=== PATIENT | male | born 1990 | race Two or more races ===

== ENCOUNTER 2024-09-15 18:32 | Inpatient (IN) | payer MEDICAID, OTHER ==
[~2024-09-15] VITALS: Ht 182.9 cm; Wt 105.0 kg
--- NOTE | 2024-09-15 19:01 | ED.PDOC ---
Altered Mental Status HPI Comments 33-year-old male came to ER via EMS for overdose/altered level of consciousness. Per EMS, patient picked up at home, was noted by family members that he was acting altered, confused, disoriented, and combative. Was said to have drank 750cc of whiskey earlier, and took unknown amounts of Xanax also. Patient has history of polysubstance abuse, methamphetamines, cocaine and heroin among others, in unsure if patient took some today. Patient verbally and physically aggressive at this time. No information could be taken from him Chief Complaint: Overdose Time Seen by MD: 19:00 Reviewed Notes: Hide Dyer Notes Allergies: Coded Allergies: NO KNOWN ALLERGIES (Unverified , 09/15/24) Information Source: Patient, Emergency Med Personnel Mode of Arrival: EMS Severity: Unable to Care for Self Timing: Hours Duration: Since onset Quality: Decreased Alertness, Change in Behavior, Confusion Recent: Medication/Drug Abuse Review of Systems REVIEW OF SYSTEMS: Unable to obtain due to Altered level of consciousness, intoxicated with alcohol/ drugs Vital Signs Vital Signs Date Time Temp Pulse Resp B/P (MAP) Pulse Ox O2 Delivery O2 Flow Rate FiO2 09/15/24 20:00 114 09/15/24 18:45 32 104/45 (64) 95 Physical Exam General: Awake, alert and oriented. No acute distress. Skin: Skin in warm, dry and intact. Appropriate color for ethnicity. Nailbeds pink with no cyanosis. HEENT: The head is normocephalic and atraumatic. Conjunctivae are clear without exudates or hemorrhage. Sclera is non-icteric. EOM are intact. No signs of nystagmus. Eyelids are normal in appearance without swelling or lesions. Oral mucosa is pink and moist Neck: The neck is supple with normal range of motion. No JVD. Cardiac: Heart rate and rhythm are normal. No murmurs, gallops, or rubs are auscultated. Respiratory: No signs of respiratory distress. Lung sounds are clear in all lobes bilaterally without rales, rhonchi, or wheezes. Abdominal: Abdomen is soft, non-tender without distention. Bowel sounds are present and normoactive in all four quadrants. Extremities: Upper and lower extremities are atraumatic in appearance without deformity or edema. Neurological: The patient is awake, speech is slurred and slow. Psychiatric: Patient is agitated and combative. Past Medical History PAST MEDICAL HISTORY: Pt Confused Surgical History: Pt Confused Family History Family History: Pt Confused Social History Smoker: Pt Confused Alcohol: Heavy Drugs: Cocaine, Heroin, Marijuana, Methamphetamine Lives In: Home Was a procedure done? Was a procedure done?: No Differential Diagnosis (ALOC) Differential Diagnosis: Dehydration, Hypoglycemia, Encephalopathy, Hypoxemia, Seizure, Closed Head Injury, Drug Overdose, ETOH Intoxication, Other X-Ray, Labs, Meds, VS Vital Signs Date Time Temp Pulse Resp B/P (MAP) Pulse Ox O2 Delivery O2 Flow Rate FiO2 09/15/24 20:00 114 09/15/24 18:45 125 32 104/45 (64) 95 Lab Test 09/15/24 22:00 09/15/24 19:18 Range/Units Urine Color Colorless Yellow Urine Clarity Clear Clear Urine pH 5.5 5.0-9.0 Urine Specific [place] 1.005 1.001-1.035 Urine Protein Negative Negative Urine Ketones Negative Negative Urine Blood Negative Negative /uL Urine Nitrite Negative Negative Urine Bilirubin Negative Negative Urine Urobilinogen Normal Negative mg/dL Urine Leukocyte Esterase Negative Negative /uL Urine RBC None seen 0 - 3 /hpf Urine Microscopic WBC 1 0-3 /HPF Urine Squamous Epithelial Cells None seen <5 /hpf Urine Bacteria None seen None Seen /hpf Urine Hyaline Casts Few 0 - 2 /lpf Urine Glucose Normal Normal mg/dL Urine Opiates Screen Neg NEGATIVE Urine Fentanyl Screen Neg NEGATIVE Urine Barbiturates Screen Neg NEGATIVE Urine Phencyclidine Screen Neg NEGATIVE Urine Amphetamines Screen Neg NEGATIVE Urine Benzodiazepines Screen Pos NEGATIVE Urine Cocaine Screen Neg NEGATIVE Urine Cannabinoids Screen Neg NEGATIVE White Blood Count 6.9 4.4-10.8 10^3/uL Red Blood Count 4.69 4.5-5.90 10^6/uL Hemoglobin 13.2 L 13.5-17.5 g/dL Hematocrit 39.4 L 41.0-53.0 % Mean Corpuscular Volume 84.0 80.0-100.0 fL Mean Corpuscular Hemoglobin 28.1 28.0-32.0 pg Mean Corpuscular Hemoglobin Concent 33.4 32.0-36.0 g/dL Red Cell Distribution Width 15.6 H 11.8-14.3 % Platelet Count 395 140-450 10^3/uL Mean Platelet Volume 8.0 6.9-10.8 fL Neutrophils (%) (Auto) 52.5 37.0-80.0 % Lymphocytes (%) (Auto) 35.4 10.0-50.0 % Monocytes (%) (Auto) 7.3 0.0-12.0 % Eosinophils (%) (Auto) 4.2 0.0-7.0 % Basophils (%) (Auto) 0.6 0.0-2.0 % Neutrophils # (Auto) 3.6 1.6-8.6 10 ^3/uL Lymphocytes # (Auto) 2.4 0.4-5.4 10 ^3/uL Monocytes # (Auto) 0.5 0-1.3 10 ^3/uL Eosinophils # (Auto) 0.3 0-0.8 10 ^3/uL Basophils # (Auto) 0 0-0.2 10 ^3/uL Nucleated Red Blood Cells 0.0 % Sodium Level 150 H 136-145 mmol/L Potassium Level 3.9 3.5-5.1 mmol/L Chloride Level 114 H 98-107 mmol/L Carbon Dioxide Level 25 20-31 mmol/L Anion Gap 11 5-15 Blood Urea Nitrogen 7 L 9-23 mg/dL Creatinine 1.17 0.700-1.30 mg/dL Glomerular Filtration Rate Calc 83 >90 mL/min BUN/Creatinine Ratio 6.0 L 10.0-20.0 Serum Glucose 115 H 74-106 mg/dL Calcium Level 10.2 8.7-10.4 mg/dL Total Bilirubin 0.2 0.2-1.0 mg/dL Aspartate Amino Transferase (AST) 28 <34 U/L Alanine Aminotransferase (ALT) 49 H 7-40 U/L Alkaline Phosphatase 50 46-116 U/L B-Type Natriuretic Peptide 9.85 0-100 pg/mL Total Protein 7.4 5.7-8.2 g/dL Albumin 4.6 3.2-4.8 g/dL Plasma/Serum Blood Alcohol 216.6 H <10 mg/dL Current Medications Medications (Trade) Dose Ordered Sig/Asha Route Start Time Stop Time Status Last Admin Diphenhydramine HCl (Benadryl Injection) 50 mg ONCE ONCE IM 09/15/24 18:45 09/15/24 18:46 DC 09/15/24 19:26 Haloperidol Lactate (Haldol) 5 mg ONCE ONCE IM 09/15/24 18:45 09/15/24 18:46 DC 09/15/24 19:26 Sodium Chloride 1,000 ml @ 1,000 mls/hr Q1H ONCE IV 09/15/24 18:45 09/15/24 19:44 DC 09/15/24 19:42 Lactated Ringer's 1,000 ml @ 100 mls/hr Q10H IV 09/15/24 20:45 09/15/24 20:45 Time of 1ST Reevaluation: 18:55 Reevaluation 1ST: Unchanged Patient Education/Counseling: Prognosis, Other (Altered level of consciousness) Family Education/Counseling: No Family Present SEPSIS Sepsis Screen Physician Orders Behavioral Restraints (09/15/24 19:25) Lactated Ringer's (09/15/24 20:45) Canales Catheters (09/15/24 ) Chest Xray 1 View (09/15/24 22:34) Abg W/ Co-Ox (09/15/24 22:34) Vital Signs Date Time Temp Pulse Resp B/P (MAP) Pulse Ox O2 Delivery O2 Flow Rate FiO2 09/15/24 20:00 114 09/15/24 18:45 125 32 104/45 (64) 95 Laboratory Tests Test 09/15/24 19:18 White Blood Count 6.9 10^3/uL (4.4-10.8) Medications Medications Dose Ordered Sig/Asha Route Start Time Stop Time Status Last Admin Dose Admin Diphenhydramine HCl 50 mg ONCE ONCE IM 09/15/24 18:45 09/15/24 18:46 DC 09/15/24 19:26 Haloperidol Lactate 5 mg ONCE ONCE IM 09/15/24 18:45 09/15/24 18:46 DC 09/15/24 19:26 Lactated Ringer's 1,000 ml @ 100 mls/hr Q10H IV 09/15/24 20:45 09/15/24 20:45 Sodium Chloride 1,000 ml @ 1,000 mls/hr Q1H ONCE IV 09/15/24 18:45 09/15/24 19:44 DC 09/15/24 19:42 Departure 1 Departure Time of Disposition: 21:05 Impression: Primary Impression: Alcohol intoxication Additional Impressions: Hypernatremia Polysubstance abuse Polysubstance overdose Disposition: 09 ADMITTED INPATIENT Condition: Stable Comments 33-year-old male who presented to the emergency department with altered mental status. Patient was agitated and combative with staff on arrival to the emergency department. He was unable to be redirected. Patient was placed in restraints and given Benadryl and Haldol. Patient found to be hypernatremic Patient admitted to hospitalist service for further treatment, evaluation and monitoring. Extensive evaluation was performed in attempt to identify or rule out: (See differential diagnosis section) The following tests were ordered, and results were reviewed by me and discussed with patient: (See diagnostic results section) The following test were independently interpreted by me: N/A I reviewed and agreed with the following test results read by other providers: N/A I reviewed the following notes from the pt's past medical encounters: N/A Additional information was gathered from interviewing the following independent historians: EMS personnel Discussion of management or test interpretation with external physician/other qualified health lpn care manager: N/A Decision regarding hospitalization or escalation of hospital level of care: Risk and benefits of admission for further treatment of patient's condition was considered. Due to patient's current clinical condition, high risk of decline and poor outcome if discharged and need for further inpatient management and monitoring, patient will be admitted to the hospital. Discussed with patient. Decision regarding hospitalization or escalation of hospital level of care: Risks and benefits of admission for further treatment of patient's condition was considered however due to patient's stable condition patient will be discharged to follow up closely or return to care for worsening of condition or inability to follow up. Critical Care Note Critical Care Time?: No Stability Stability form required: No Heart Score Heart Score: Heart Score Response (Comments) Value History N/A 0 EKG N/A 0 Age N/A 0 Risk Factors N/A 0 Troponin N/A 0 Total 0 I personally scribed for PRABHU TAYLOR MD ([email or web address]) on 09/15/24 at 19:01. Electronically submitted by Elías Herrera ([email or web address]). PRABHU TAYLOR MD Sep 15, 2024 19:01
[2024-09-15] MEDS: HALOPERIDOL LACTATE 5 MG/ML INJ VIAL IM ONE (19:26)
[2024-09-15] MEDS: diphenhdrAMINE HCL 50 MG/1 ML VL IM ONE (19:26)
[2024-09-15 19:36] LABS: Basophils # (auto) 0 10 ^3/uL (0-0.2); Basophils % (auto) 0.6 % (0.0-2.0); Eosinophils # (auto) 0.3 10 ^3/uL (0-0.8); Eosinophils % (auto) 4.2 % (0.0-7.0); Hematocrit 39.4 % (41.0-53.0); Hemoglobin 13.2 g/dL (13.5-17.5); Lymphocytes # (auto) 2.4 10 ^3/uL (0.4-5.4); Lymphocytes % (auto) 35.4 % (10.0-50.0); Mean Corpuscular Hemoglobin 28.1 pg (28.0-32.0); Mean Corpuscular Hgb Conc. 33.4 g/dL (32.0-36.0); Monocytes # (auto) 0.5 10 ^3/uL (0-1.3); Monocytes % (auto) 7.3 % (0.0-12.0); Neutrophils # (auto) 3.6 10 ^3/uL (1.6-8.6); Neutrophils % (auto) 52.5 % (37.0-80.0); Platelet Count (auto) 395 10^3/uL (140-450); Red Blood Cells 4.69 10^6/uL (4.5-5.90); Red Cell Distribution Width 15.6 % (11.8-14.3); White Blood Cell 6.9 10^3/uL (4.4-10.8)
[2024-09-15] MEDS: SODIUM CHLORIDE 0.9% 1,000 ML IV ONE (19:42)
[2024-09-15 19:49] LABS: Albumin 4.6 g/dL (3.2-4.8); Alkaline Phosphatase 50 U/L (46-116); Anion Gap 11 (5-15); Aspartate Aminotransferase 28 U/L (<34); Blood Alcohol 216.6 mg/dL (<10); Calcium 10.2 mg/dL (8.7-10.4); Carbon Dioxide 25 mmol/L (20-31); Potassium 3.9 mmol/L (3.5-5.1); Total Protein 7.4 g/dL (5.7-8.2)
[2024-09-15 19:52] LABS: Alanine Aminotransferase 49 U/L (7-40); Bilirubin, Total 0.2 mg/dL (0.2-1.0); Blood Urea Nitrogen 7 mg/dL (9-23); Chloride 114 mmol/L (98-107); Glucose 115 mg/dL (74-106); Sodium 150 mmol/L (136-145)
[2024-09-15] MEDS ORDERED: SODIUM CHLORIDE 0.9% 1,000 ML IV SCH (20:30)
[2024-09-15] MEDS: LACTATED RINGER'S 1,000 ML IV SCH (20:45)
[2024-09-15 22:04] LABS: Urine Bacteria None Seen /hpf (None Seen)
[2024-09-15 22:18] LABS: Urine Blood Negative /uL (Negative); Urine Clarity Clear (Clear); Urine Color Colorless (Yellow); Urine Hyaline Cast FEW /lpf (0 - 2); Urine Protein, UAD Negative (Negative); Urine Specific Gravity 1.005 (1.001-1.035); Urine Squamous Epithelial Cell None Seen /hpf (<5); Urine Urobilinogen Normal (Negative); Urine WBC 1 /HPF (0-3); Urine pH 5.5 (5.0-9.0)
[2024-09-15 22:26] LABS: Amphetamine Screen, Urine Neg (NEGATIVE); Barbiturate Scree,Urine Neg (NEGATIVE); Benzodiazephine Screen, Urine Pos (NEGATIVE); Cannabinoid Screen, Urine Neg (NEGATIVE); Cocaine Screen, Urine Neg (NEGATIVE); Opiate Scree,Urine Neg (NEGATIVE); Phencyclidine Screen, Urine Neg (NEGATIVE)
--- NOTE | 2024-09-15 22:40 | DVHHP2 ---
History of Present Illness Reason for Visit: Alcohol intoxication History of Present Illness The patient is a 33-year-old male with past medical history of EtOH and drug abuse presented to [facility] ED for evaluation of altered level of consciousness. As reported by EMS, patient was picked up at home, noted by family member that he was acting altered, confused, disoriented, and combative. It was reported that he drank 750 cc of whiskey and unknown amount of Xanax. Patient was seen and evaluated in the ED, laboratory data shows WBC 6.9, platelets 395, sodium 150, potassium 3.9, BUN 7, creatinine 1.17, glucose 115, AST 28, ALT 49, serum alcohol 216.6, blood pressure 104/45, heart rate 114, temperature 97.6 F, O2 saturation 95% on oxygen. Chest x-ray revealing prominence of the interstitial markings in the right greater than left lungs no pleural effusions or pneumothorax. Please see medication orders section in the computer. On my assessment, patient remains altered, agitated, wheezing, no diaphoresis, currently on oxygen, no diarrhea, no nausea, no vomiting, no fever, no chills. Patient was admitted for further evaluation and medical management. Past Medical History EtOH abuse, Polysubstance abuse Past Surgical History Unobtainable Family History Reviewed, noncontributory to the management of this case. Past Social History Patient lives at home, no history of smoking, drinks alcohol heavily, uses Cocaine, Heroin, Marijuana, Methamphetamine. Review of Systems Constitutional: Yes: Weakness; No: Fever, Chills, Sweats, Malaise, Other Eyes: No: Pain, Vision change, Conjunctivae inflammation, Eyelid inflammation, Other, Redness ENT: No: Ear pain, Ear discharge, Nose pain, Nose discharge, Nose congestion, Mouth pain, Mouth swelling, Throat pain, Throat swelling, Other Respiratory: No: Cough, Dry, Shortness of breath, SOB with excertion, Wheezing, Hemoptysis, Pleuritic Pain, Sputum, Wheezing, Other Cardiovascular: No: Chest Pain, Palpitations, Orthopnea, Paroxysmal Noc. Dyspnea, Edema, Lt Headedness, Other Gastrointestinal: No: Nausea, Vomiting, Abdominal Pain, Diarrhea, Constipation, Melena, Hematochezia, Other Genitourinary: No Dysuria, No Frequency, No Incontinence, No Hematuria, No Retention, No Other Musculoskeletal: No: other, neck pain, shoulder pain, arm pain, back pain, hand pain, leg pain, foot pain Skin: No: Rash, Lesions, Jaundice, Bruising, Other Neurological: Confusion, Other (Altered level of consciousness); No: Weakness, Numbness, Incoordination, Change in speech, Seizures Allergies: Coded Allergies: NO KNOWN ALLERGIES (Unverified , 09/15/24) Medications Current Medications Medications Dose Ordered Sig/Asha Route Start Time Stop Time Status Last Admin Dose Admin Lactated Ringer's 1,000 ml @ 100 mls/hr Q10H IV 09/15/24 20:45 09/15/24 20:45 100 MLS/HR Exam Vital Signs Vital Signs Date Time Temp Pulse Resp B/P (MAP) Pulse Ox O2 Delivery O2 Flow Rate FiO2 09/15/24 20:00 114 09/15/24 18:45 32 104/45 (64) 95 General Appearance: Alert, Cooperative, No acute distress HEENT: Atraumatic, PERRLA, EOMI, Mucous membr. moist/pink Respiratory: Normal air movement Cardiovascular: Regular rate, Normal S1, Normal S2, No murmurs Abdominal: Normal bowel sounds, Soft, No tenderness, No hepatospenomegaly, No masses Extremities: No clubbing, No cyanosis, No edema, Normal pulses, No tenderness/swelling Skin: No rashes, No breakdown, No significant lesion Neuro: Reflexes 2+, Other (Generalized weakness) Psych/Mental Status: Mood NL, Other (Altered mental status) Labs/Xrays Labs Test 09/15/24 22:00 09/15/24 19:18 Range/Units Urine Color Colorless Yellow Urine Clarity Clear Clear Urine pH 5.5 5.0-9.0 Urine Specific [place] 1.005 1.001-1.035 Urine Protein Negative Negative Urine Ketones Negative Negative Urine Blood Negative Negative /uL Urine Nitrite Negative Negative Urine Bilirubin Negative Negative Urine Urobilinogen Normal Negative mg/dL Urine Leukocyte Esterase Negative Negative /uL Urine RBC None seen 0 - 3 /hpf Urine Microscopic WBC 1 0-3 /HPF Urine Squamous Epithelial Cells None seen <5 /hpf Urine Bacteria None seen None Seen /hpf Urine Hyaline Casts Few 0 - 2 /lpf Urine Glucose Normal Normal mg/dL Urine Opiates Screen Neg NEGATIVE Urine Fentanyl Screen Neg NEGATIVE Urine Barbiturates Screen Neg NEGATIVE Urine Phencyclidine Screen Neg NEGATIVE Urine Amphetamines Screen Neg NEGATIVE Urine Benzodiazepines Screen Pos NEGATIVE Urine Cocaine Screen Neg NEGATIVE Urine Cannabinoids Screen Neg NEGATIVE White Blood Count 6.9 4.4-10.8 10^3/uL Red Blood Count 4.69 4.5-5.90 10^6/uL Hemoglobin 13.2 L 13.5-17.5 g/dL Hematocrit 39.4 L 41.0-53.0 % Mean Corpuscular Volume 84.0 80.0-100.0 fL Mean Corpuscular Hemoglobin 28.1 28.0-32.0 pg Mean Corpuscular Hemoglobin Concent 33.4 32.0-36.0 g/dL Red Cell Distribution Width 15.6 H 11.8-14.3 % Platelet Count 395 140-450 10^3/uL Mean Platelet Volume 8.0 6.9-10.8 fL Neutrophils (%) (Auto) 52.5 37.0-80.0 % Lymphocytes (%) (Auto) 35.4 10.0-50.0 % Monocytes (%) (Auto) 7.3 0.0-12.0 % Eosinophils (%) (Auto) 4.2 0.0-7.0 % Basophils (%) (Auto) 0.6 0.0-2.0 % Neutrophils # (Auto) 3.6 1.6-8.6 10 ^3/uL Lymphocytes # (Auto) 2.4 0.4-5.4 10 ^3/uL Monocytes # (Auto) 0.5 0-1.3 10 ^3/uL Eosinophils # (Auto) 0.3 0-0.8 10 ^3/uL Basophils # (Auto) 0 0-0.2 10 ^3/uL Nucleated Red Blood Cells 0.0 % Sodium Level 150 H 136-145 mmol/L Potassium Level 3.9 3.5-5.1 mmol/L Chloride Level 114 H 98-107 mmol/L Carbon Dioxide Level 25 20-31 mmol/L Anion Gap 11 5-15 Blood Urea Nitrogen 7 L 9-23 mg/dL Creatinine 1.17 0.700-1.30 mg/dL Glomerular Filtration Rate Calc 83 >90 mL/min BUN/Creatinine Ratio 6.0 L 10.0-20.0 Serum Glucose 115 H 74-106 mg/dL Calcium Level 10.2 8.7-10.4 mg/dL Total Bilirubin 0.2 0.2-1.0 mg/dL Aspartate Amino Transferase (AST) 28 <34 U/L Alanine Aminotransferase (ALT) 49 H 7-40 U/L Alkaline Phosphatase 50 46-116 U/L Total Protein 7.4 5.7-8.2 g/dL Albumin 4.6 3.2-4.8 g/dL Plasma/Serum Blood Alcohol 216.6 H <10 mg/dL PATIENT: ROHIT CUETOACCT: [id number] UNIT: [id number] : 1990 LOC: ER ROOM / BED: / AGE / SEX: 33 / M ADM STATUS: REG ER SERVICE 33 ORDERING PHYSICIAN: PRABHU TAYLOR MD PROCEDURE(s): CXR1 - CHEST XRAY 1 VIEW REASON: Wheezing, hypoxia ORDER NUMBER(s): [id number], ACCESSION NUMBER(s): [id number] CHEST RADIOGRAPH Indication: Wheezing, hypoxia Technique: Single frontal view of the chest was obtained Comparison: None FINDINGS/IMPRESSION: There is prominence of the interstitial markings in the right greater than left lung. No pleural effusion or pneumothorax. The cardiomediastinal silhouette is unremarkable. No acute osseous abnormality. Assessment/Plan Assessment/Plan Alcohol intoxication Hypernatremia Polysubstance abuse Polysubstance overdose Plan 1. Admit to telemetry unit 2. Breathing treatment 3. Pain control management 4. Management of fluids and electrolytes 5. Consultation for hospitalist 6. Diagnostic tests chest x-ray 7. DVT prophylaxis on SCDs 8. Repeat labs CBC, CMP in a.m. 9. Continue with current medical management 10. Treatment plan discussed with patient and RN. Patient verbalized understanding. Plan discussed with: Patient, Other (RN) My Orders Orders - NADIR CHURCH DNP Procedure Category Date Status Time Thiamine Inj PHA 09/16/24 Verified 10:00 Thiamine Inj PHA 09/15/24 Verified 22:45 Folic Acid Ivpb PHA 09/16/24 Verified 10:00 Folic Acid Ivpb PHA 09/15/24 Verified 22:45 Multiple Vitamin PHA 09/15/24 Verified Tablet (Mvi Tab) 22:45 Multiple Vitamin PHA 09/16/24 Verified Tablet (Mvi Tab) 10:00 Chlordiazepoxide Hcl PHA 09/15/24 Verified Capsule (Librium Ca 22:45 Admit ADMIT 09/15/24 Verified 22:36 Allergies SARAH 09/15/24 Verified 22:36 Code Status CODE 09/15/24 Verified 22:36 Oxygen Per Hour RT 09/15/24 Verified 22:36 Ondansetron Hcl PHA 09/15/24 Verified (Zofran) 22:45 Docusate Sodium PHA 09/15/24 Verified Capsule (Colace 22:45 Fall Risk Precautions SARAH 09/15/[address] 22:36 Complete Blood Count LAB 09/16/24 Verified 04:00 Comprehensive LAB 09/16/24 Verified Metabolic Panel 04:00 Cardiac DIET 09/16/24 Verified Diet-2gna,Lofat,Lochol Breakfast Condition: Serious SARAH 09/15/24 Verified 22:36 Acetaminophen Tablet PHA 09/15/24 Verified (Tylenol Tablet) 22:45 Maintain Bed Rest SARAH 09/15/24 Verified 22:36 Sequential SARAH 09/15/24 Verified Compression Device Nitroglycerin PHA 09/15/24 Verified Sublingual (Ntrostat 22:45 Morphine Sulfate PHA 09/15/24 Verified Injection 22:45 Stat Ekg For Chest [facility] 09/15/24 Verified Pain 22:36 Notify Md Of Changes [facility] 09/15/24 Verified From Base 22:36 Blanket Winder Operator For [facility] 09/15/24 Verified 24 Hours 22:36 Emergency Dysrhythmia [facility] 09/15/24 Verified Protocol 22:36 Rhythm Strips Once [facility] 09/15/24 Verified Every Shift 22:36 Oxygen By Nasal RT 09/15/24 Verified Cannula 22:36 Problem List: (1) Alcohol intoxication (2) Hypernatremia (3) Polysubstance overdose (4) Polysubstance abuse Date of Service: Sep 15, 2024 Billing Provider: NADIR CHURCH DNP Common Visit Codes: [id number] INP/OBS CARE (HIGH) NADIR CHURCH DNP Sep 15, 2024 22:40
[2024-09-15] MEDS ORDERED: DOCUSATE SOD 100 MG CAP PO PRN (22:45)
[2024-09-15] MEDS ORDERED: ONDANSETRON HCL 4 MG/2 ML VIAL IV PRN (22:45)
[2024-09-15] MEDS ORDERED: ACETAMINOPHEN 325 MG TAB PO PRN (22:45)
[2024-09-15] MEDS ORDERED: NITROGLYCERIN 0.4 MG SL TAB SL PRN (22:45)
[2024-09-15] MEDS ORDERED: MORPHINE SULFATE INJ 2 MG/ml SYRG IV PRN (22:45)
[2024-09-15] MEDS ORDERED: chlordiazePOXIDE HCL 25 MG CAP PO PRN (22:45)
[2024-09-15] MEDS: FOLIC ACID 1 MG in D5W 5% 50 ML INJ ONE (22:45)
[2024-09-15] MEDS: MULTIPLE VITAMIN TAB PO ONE (22:45)
[2024-09-15] MEDS: ALBUTEROL SULF 2.5 MG/0.5ML(0.5%) NEB SOLN NEB ONE (22:58)
[2024-09-15] MEDS: ONDANSETRON HCL 4 MG/2 ML VIAL IV ONE (23:09)
--- NOTE | 2024-09-15 23:15 | DVH ---
CHEST RADIOGRAPH Indication: Wheezing, hypoxia Technique: Single frontal view of the chest was obtained Comparison: None FINDINGS/IMPRESSION: There is prominence of the interstitial markings in the right greater than left lung. No pleural effusion or pneumothorax. The cardiomediastinal silhouette is unremarkable. No acute osseous abnormality.
[2024-09-16] VITALS (8 sets, daily range): BP systolic 129; BP diastolic 72; PULSE 94–107; RESP 18–23; TEMP 98.4; O2SAT 100
[2024-09-16] MEDS: THIAMINE 100mg/ml INJ (200mg/2ml VIAL) IV ONE (00:24)
[2024-09-16] MEDS: IPRATROPIUM BROM 0.5 MG/2.5ML INH SOL NEB PRN (04:10)
[2024-09-16] MEDS: ALBUTEROL SULF 2.5 MG/0.5ML(0.5%) NEB SOLN NEB PRN (04:10)
[2024-09-16 07:22] LABS: Basophils # (auto) 0.1 10 ^3/uL (0-0.2); Basophils % (auto) 0.5 % (0.0-2.0); Eosinophils # (auto) 0 10 ^3/uL (0-0.8); Eosinophils % (auto) 0.4 % (0.0-7.0); Hemoglobin 12.9 g/dL (13.5-17.5); Lymphocytes # (auto) 1.6 10 ^3/uL (0.4-5.4); Lymphocytes % (auto) 14.6 % (10.0-50.0); Mean Corpuscular Hemoglobin 27.3 pg (28.0-32.0); Mean Corpuscular Hgb Conc. 32.2 g/dL (32.0-36.0); Mean Corpuscular Volume 84.8 fL (80.0-100.0); Monocytes # (auto) 0.7 10 ^3/uL (0-1.3); Monocytes % (auto) 6.5 % (0.0-12.0); Neutrophils # (auto) 8.4 10 ^3/uL (1.6-8.6); Platelet Count (auto) 386 10^3/uL (140-450); Red Blood Cells 4.71 10^6/uL (4.5-5.90); Red Cell Distribution Width 15.4 % (11.8-14.3); White Blood Cell 10.8 10^3/uL (4.4-10.8)
[2024-09-16] MEDS: FOLIC ACID 1 MG, MULTIPLE VITAMIN 10 ML, MAGNESIUM SULF SDV 50% 8 MEQ, THIAMINE INJ 100... INJ STA (07:25)
[2024-09-16 07:37] LABS: Albumin 4.4 g/dL (3.2-4.8); Alkaline Phosphatase 52 U/L (46-116); Anion Gap 12 (5-15); Calcium 9.8 mg/dL (8.7-10.4); Carbon Dioxide 26 mmol/L (20-31); Potassium 4.2 mmol/L (3.5-5.1); Total Protein 7.3 g/dL (5.7-8.2)
[2024-09-16 07:50] LABS: Sodium 148 mmol/L (136-145)
[2024-09-16 07:51] LABS: Alanine Aminotransferase 44 U/L (7-40); Aspartate Aminotransferase 45 U/L (<34); BUN/Creatinine Ratio 5.1 (10.0-20.0); Bilirubin, Total 0.3 mg/dL (0.2-1.0); Blood Urea Nitrogen < 5 mg/dL (9-23); Chloride 110 mmol/L (98-107); Glucose 108 mg/dL (74-106)
[2024-09-16] MEDS ORDERED: THIAMINE 100mg/ml INJ (200mg/2ml VIAL) IV SCH (10:00)
[2024-09-16] MEDS ORDERED: MULTIPLE VITAMIN TAB PO SCH (10:00)
[2024-09-16] MEDS ORDERED: FOLIC ACID 1 MG in D5W 5% 50 ML INJ SCH (10:00)
--- NOTE | 2024-09-16 16:51 | DVHPN2 ---
Subjective Patient denies any symptoms at this time. Patient continues to be somewhat encephalopathic. Reviewed: Care Plan, H&P, Medications, Previous Orders Changes from previous H/P or p: No Changes General: Per HPI Eyes: No Pain, No Vision change, No Conjunctivae inflammation, No Eyelid inflammation, No Other, No Redness ENT: No Ear pain, No Ear discharge, No Nose pain, No Nose discharge, No Nose congestion, No Mouth pain, No Mouth swelling, No Throat pain, No Throat swelling, No Other Cardiovascular: No Chest Pain, No Palpitations, No Orthopnea, No Paroxysmal Noc. Dyspnea, No Edema, No Lt Headedness, No Other Respiratory: No Cough, No Dry, No Shortness of breath, No SOB with excertion, No Wheezing, No Hemoptysis, No Pleuritic Pain, No Sputum, No Other Gastrointestinal: No Nausea, No Vomiting, No Abdominal Pain, No Diarrhea, No Constipation, No Melena, No Hematochezia, No Other Genitourinary: No Dysuria, No Frequency, No Incontinence, No Hematuria, No Retention, No Other Musculoskeletal: No other, No neck pain, No shoulder pain, No arm pain, No back pain, No hand pain, No leg pain, No foot pain Skin: No Rash, No Lesions, No Jaundice, No Bruising, No Other Objective Vitals Vital Signs Date Time Temp Pulse Resp B/P (MAP) Pulse Ox O2 Delivery O2 Flow Rate FiO2 09/16/24 16:00 94 09/16/24 07:42 20 100 Simple Mask* 6 50 09/16/24 07:39 98.4 129/72 (91) 98.4 Intake/Output Intake and Output 09/16/24 07:00 Intake Total 2000 ml Balance 2000 ml Intake IV Total 2000 ml General Appearance: Alert, Oriented X3, Cooperative, Other (Encephalopathic) HEENT: Atraumatic, PERRLA Lungs: Clear to auscultation, Normal air movement Cardiovascular: Normal S1, Normal S2 Abdomen: Normal bowel sounds Musculoskeletal: Normal sensory function, Normal motor function Neuro: Normal speech Skin: Dry, Intact Psych/Mental Status: Mood NL Medications Current Medications Medications Dose Ordered Sig/Asha Route Start Time Stop Time Status Last Admin Dose Admin Lactated Ringer's 1,000 ml @ 100 mls/hr Q10H IV 09/15/24 20:45 09/16/24 07:03 100 MLS/HR Chlordiazepoxide HCl 25 mg Q6HPRN PRN PO 09/15/24 22:45 Ondansetron HCl 4 mg Q4HP PRN IV 09/15/24 22:45 Docusate Sodium 100 mg BIDPRN PRN PO 09/15/24 22:45 Acetaminophen 650 mg Q6HP PRN PO 09/15/24 22:45 Nitroglycerin 0.4 mg Q5MINP PRN SL 09/15/24 22:45 Morphine Sulfate 2 mg Q30M PRN IV 09/15/24 22:45 Albuterol 2.5 mg Q4HPRN PRN NEB 09/16/24 03:30 09/16/24 07:21 2.5 MG Ipratropium [place] 0.5 mg Q4HPRN PRN NEB 09/16/24 03:30 09/16/24 07:21 0.5 MG Folic Acid 1 mg/ Multivitamins 10 ml/Magnesium Sulfate 8 meq/ Thiamine HCl 100 mg/Dextrose 1,013.2 ml @ 125.001 mls/hr DAILY@1800 INJ 09/17/24 08:00 Laboratory Results Laboratory Tests 09/16/24 06:58 Chemistry Test 09/15/24 19:18 09/16/24 06:58 Albumin 4.6 g/dL (3.2-4.8) 4.4 g/dL (3.2-4.8) Calcium Level 10.2 mg/dL (8.7-10.4) 9.8 mg/dL (8.7-10.4) Total Protein 7.4 g/dL (5.7-8.2) 7.3 g/dL (5.7-8.2) Cardiac Markers Test 09/15/24 19:18 B-Type Natriuretic Peptide 9.85 pg/mL (0-100) LFT Test 09/15/24 19:18 09/16/24 06:58 Alanine Aminotransferase (ALT) 49 U/L (7-40) H 44 U/L (7-40) H Alkaline Phosphatase 50 U/L (46-116) 52 U/L (46-116) Aspartate Amino Transferase (AST) 28 U/L (<34) 45 U/L (<34) H Total Bilirubin 0.2 mg/dL (0.2-1.0) 0.3 mg/dL (0.2-1.0) Urinalysis Test 09/15/24 22:00 Urine Color Colorless (Yellow) Urine Clarity Clear (Clear) Urine pH 5.5 (5.0-9.0) Urine Specific [place] 1.005 (1.001-1.035) Urine Protein Negative (Negative) Urine Ketones Negative (Negative) Urine Blood Negative /uL (Negative) Urine Nitrite Negative (Negative) Urine Bilirubin Negative (Negative) Urine Urobilinogen Normal mg/dL (Negative) Urine Leukocyte Esterase Negative /uL (Negative) Urine RBC None seen /hpf (0 - 3) Urine Microscopic WBC 1 /HPF (0-3) Urine Squamous Epithelial Cells None seen /hpf (<5) Urine Bacteria None seen /hpf (None Seen) Urine Hyaline Casts Few /lpf (0 - 2) Urine Glucose Normal mg/dL (Normal) Blood Gas Results Test 09/15/24 22:52 Arterial Blood pH 7.362 (7.350-7.450) FiO2 % 36.0 Labs and/or images reviewed: Labs reviewed by me, Image(s) reviewed by me Assessment/Plan Assessment/Plan Impression: -toxic metabolic encephalopathy -alcoholism -unintentional overdose on benzodiazepine -obesity -hypernatremia - Plan: -continue IV hydration -banana bag daily -monitor for withdrawal symptoms -benzodiazepines p.r.n. seizure activity, withdrawal symptoms -repeat labs in a.m. Total time spent with patient discussing and formulating plan of care: 35 minutes. This medical document was created using an electronic medical record system with [email or web address] dictation system. Although this document has been carefully reviewed, there may still be some phonetic and typographical errors. These areas are purely typographical due to imperfections of the software programs, and do not reflect any compromise in the patient's medical care. Plan discussed with: Patient, Other (RN) My Orders Orders - ZHAO DOWELL NP Procedure Category Date Status Time Comprehensive LAB 09/17/24 Verified Metabolic Panel 04:00 Complete Blood Count LAB 09/17/24 Verified 04:00 Date of Service: Sep 16, 2024 Billing Provider: ZHAO DOWELL NP Common Visit Codes: [id number] INP/OBS CARE(HIGH) ZHAO DOWELL NP Sep 16, 2024 16:51
[2024-09-17] MEDS ORDERED: FOLIC ACID 1 MG, MULTIPLE VITAMIN 10 ML, MAGNESIUM SULF SDV 50% 8 MEQ, THIAMINE INJ 100... INJ SCH (08:00)
== END 2024-09-16 19:03 | disposition left against medical advice (07) | DRG 812 ==
LOC: EDBD 18:32 → ER 18:38 → OVERFLOW 22:36
PROVIDERS: ADMIT Nurse Practitioner Family; ATTEND Nurse Practitioner Family
DX: T42.4X1A Poisoning by benzodiazepines, accidental (unintentional), initial encounter (principal); G92.8 Other toxic encephalopathy; E87.0 Hyperosmolality and hypernatremia; E66.9 Obesity, unspecified; F10.229 Alcohol dependence with intoxication, unspecified; Y92.89 Other specified places as the place of occurrence of the external cause; F17.200 Nicotine dependence, unspecified, uncomplicated; Z53.29 Procedure and treatment not carried out because of patient's decision for other reasons; Y90.7 Blood alcohol level of 200-239 mg/100 ml; Z68.31 Body mass index [BMI] 31.0-31.9, adult
CPT/HCPCS: 36415; 36600; 71045; 80053; 80307; 80320; 81001; 82805; 83880; 85025; 94640; 96372; G0378; J2405; J7060

== ENCOUNTER 2024-09-18 16:10 | Emergency (ER) | payer MEDICAID ==
[~2024-09-18] VITALS: Ht 188 cm; Wt 109.0 kg
[2024-09-18 16:34] VITALS: BP 150/102; TEMP 98.9
--- NOTE | 2024-09-18 16:36 | ED.PDOC ---
History of Present Illness HPI Comments This is a 33-year-old male who comes in with chief complaint of left thumb pain. The patient states that he was being arrested. In the process of a resting him, the patient is somewhat injured his left thumb. The patient denies any other complaints at this time. The patient was brought in four-point restraints secondary to agitation. The patient denies any type of substance use. Chief Complaint: Upper Extremity Time Seen by MD: 16:17 Reviewed Notes: Nurses Notes, Special Education Para Professional Notes, Medications, Allergies (Allergies to medications) Allergies: Coded Allergies: NO KNOWN ALLERGIES (Unverified , 09/15/24) Information Source: Patient, Emergency Med Personnel Mode of Arrival: EMS Severity: Mild Timing: Hours Duration: Since onset Prehospital treatment: None, Restraints Location: Left thumb injury Past Medical History PAST MEDICAL HISTORY: Denies Surgical History: Denies all surgeries Family History Family History: No family hx of Cancer, No family hx of DM, No family hx of H eart rachid, No family hx of HTN Social History Smoker: Cigarettes, Pt Confused Alcohol: Heavy Drugs: Cocaine, Heroin, Marijuana, Methamphetamine Lives In: Home Constitutional: denies: chills, diaphoresis, fatigue, fever, malaise, sweats, weakness, others EENTM: denies: blurred vision, double vision, ear bleeding, ear discharge, ear drainage, ear pain, ear ringing, eye pain, eye redness, hearing loss, mouth pain, mouth swelling, nasal discharge, nose bleeding, nose congestion, nose pain, photophobia, tearing, throat pain, throat swelling, voice changes, others Respiratory: denies: cough, hemoptysis, orthopnea, SOB at rest, shortness of breath, SOB with excertion, stridor, wheezing, others Cardiovascular: denies: chest pain, dizzy spells, diaphoresis, Dyspnea on exertion, edema, irregular heart beat, left arm pain, lightheadedness, palpitations, PND, syncope, others Gastrointestinal: denies: abdomen distended, abdominal pain, blood streaked bowels, constipated, diarrhea, dysphagia, difficulty swallowing, hematemesis, melena, nausea, poor appetite, poor fluid intake, rectal bleeding, rectal pain, vomiting, others Genitourinary: denies: burning, dysuria, flank pain, frequency, hematuria, incontinence, penile discharge, penile sore, pain, testicle pain, testicle swelling, urgency, others Neurological: denies: dizziness, fainting, headache, left sided numbness, left sided weakness, numbness, paresthesia, pre-existing deficit, right sided numbness, right sided weakness, seizure, speech problems, tingling, tremors, weakness, others Musculoskeletal: reports: others (Left thumb injury); denies: back pain, gout, joint pain, joint swelling, muscle pain, muscle stiffness, neck pain Integumetry: denies: bruises, change in color, change in hair/nails, dryness, laceration, lesions, lumps, rash, wounds, others Allergic/Immunocompromised: denies: Difficulty Healing, Frequent Infections, Hives, Itching, others Hematologic/Lymphatic: denies: anemia, blood clots, easy bleeding, easy bruising, swollen glands, others Endocrine: denies: excessive hunger, excessive sweating, excessive thirst, excessive urination, flushing, intolerance to cold, intolerance to heat, unexplained weight gain, unexplained weight loss, others Psychiatric: denies: anxiety, bipolar disorder, depression, hopeless, panic disorder, schizophrenia, sleepless, suicidal, others Physical Exam General Appearance: No Apparent Distress HEENT: Normal ENT Inspection, Pharynx Normal, TMs Normal Neck: Full Range of Motion, Non-Tender, Normal, Normal Inspection Respiratory: Chest Non-Tender, Lungs Clear, No Accessory Muscle Use, No Respiratory Distress, Normal Breath Sounds Cardiovascular: No Edema, No JVD, No Murmur, No Gallop, Normal Peripheral Pulses, Regular Rate/Rhythm Breast Exam: Deferred Gastrointestinal: No Organomegaly, Non Tender, No Pulsatile Mass, Normal Bowel Sounds, Soft Genitalia: Deferred Pelvic: Deferred Rectal: Deferred Extremities: No calf tenderness, Normal capillary refill, No pedal edema Musculoskeletal : Location: Left Extremity Location: Thumb Apperance: Limited ROM, Tenderness: Moderate Neurologic: Alert, vice president of instruction II-XII nml as Tested, No Motor Deficits, Normal Affect, Normal Mood, No Sensory Deficits Cerebellar Function: Normal Reflexes: Normal Skin: Dry, Normal Color, Warm Lymphatic: No Adenopathy Was a procedure done? Was a procedure done?: No Differential Dx Considerations may include: Fracture, contusion, dislocation X-Ray, Labs, Meds, VS X-ray of the left thumb shows no sign of any fracture The patient is now medically cleared for incarceration The patient is discharged and will follow up with the primary care doctor once he is released from custody Images Reviewed?: Images reviewed and evaluated by me Time of 1ST Reevaluation: 16:48 Reevaluation 1ST: Improved Patient Education/Counseling: Diagnosis, Treatment, Prognosis, Need For Follow Up Family Education/Counseling: No Family Present SEPSIS Sepsis Screen Physician Orders L Hand 2v Xray (09/18/24 16:23) Departure 1 Departure Time of Disposition: 16:49 Impression: Primary Impression: Strain of left thumb Disposition: 01 HOME / SELF CARE / HOMELESS Condition: Fair Discharged With: Self Critical Care Note Critical Care Time?: No Stability Stability form required: No Heart Score Heart Score: Heart Score Response (Comments) Value History N/A 0 EKG N/A 0 Age N/A 0 Risk Factors N/A 0 Troponin N/A 0 Total 0 I personally scribed for FORREST PEREZ MD ([email or web address]) on 09/18/24 at 16:39. Electronically submitted by Rahul Benjamin ([email or web address]). FORREST PEREZ MD Sep 18, 2024 16:36
--- NOTE | 2024-09-18 16:56 | DVH ---
CLINICAL INDICATION: trauma TECHNIQUE: 3 radiographic views of the left and were obtained. Comparison: None FINDINGS/IMPRESSION: There is no evidence of acute fracture or dislocation. Limited by presence of hand cuffs. The visualized joint space is well maintained. The alignment is anatomical. There is no radiopaque foreign body.
[2024-09-18 17:00] VITALS: PULSE 110; RESP 16; O2SAT 98
== END 2024-09-18 17:08 | disposition home or self-care (01) ==
LOC: ER 16:10 → EDBD 16:10 → EDSEX 16:10 → ER 17:04
DX: S66.812A Strain of other specified muscles, fascia and tendons at wrist and hand level, left hand, initial encounter (principal); F17.210 Nicotine dependence, cigarettes, uncomplicated; F12.90 Cannabis use, unspecified, uncomplicated; F19.90 Other psychoactive substance use, unspecified, uncomplicated; F10.20 Alcohol dependence, uncomplicated; X58.XXXA Exposure to other specified factors, initial encounter; Y93.89 Activity, other specified; Y92.89 Other specified places as the place of occurrence of the external cause; Y99.8 Other external cause status; Y90.9 Presence of alcohol in blood, level not specified
CPT/HCPCS: 73120